=== PATIENT | female | born 1970 | race Caucasian/White ===

== ENCOUNTER 2016-05-12 12:54 | Emergency (ER) | payer OTHER ==
[2016-05-12 13:26] VITALS: BP 120/72
--- NOTE | 2016-05-12 14:19 | RAD ---
Indication: Fall, medial left ankle pain 3 views of the left ankle demonstrate soft tissue swelling. There is suggestion of a nondisplaced fracture distal fibula. This is best identified on the oblique mortise view. Ankle mortise is intact. IMPRESSION: Marked soft tissue swelling. Question of a nondisplaced fracture of the distal fibula.
--- NOTE | 2016-05-12 14:20 | RAD ---
Indication: Right hip pain posteriorly. 2 views of the right femur demonstrates no fracture. No other bone or joint abnormalities identified. IMPRESSION: No fracture of the right femur is noted.
--- NOTE | 2016-05-12 14:22 | RAD ---
Indication: Left foot pain after injury. 3 views of left foot demonstrates no definite fracture. No other bone or joint abnormality is identified. IMPRESSION: No fracture of the left foot is noted.
--- NOTE | 2016-05-12 14:49 | UC ---
Lower Extremity/Ankle HPI - HPI Summary HPI Summary: FALL YESTERDAY DOWN STEPS INVERTED LEFT ANKLE AND ALSO LANDED ON RIGHT HIP. ABLE TO BEAR WEIGHT, BUT LEFT ANKLE SWELLING AND PAIN CONTINUE. NO OTHER INJURIES NO HEAD OR NECK TRAUMA. - History of Current Complaint Chief Complaint: UCLowerExtremity Stated Complaint: LEFT ANKLE PAIN/INJURY Time Seen by Provider: 05/12/16 13:34 Hx Obtained From: Patient Hx Last Menstrual Period: 04/25/16 Onset/Duration: Sudden Onset, Lasting Hours, Still Present Severity Initially: Moderate Severity Currently: Moderate Aggravating Factor(s): Standing, Ambulation Alleviating Factor(s): Rest, Elevation, Ice Able to Bear Weight: Yes - Risk Factors Gout Risk Factors: Negative DVT Risk Factors: Negative Septic Arthritis Risk Factor: Negative - Allergies/Home Medications Allergies/Adverse Reactions: Allergies Allergy/AdvReac Type Severity Reaction Status Date / Time No Known Allergies Allergy Verified 05/12/16 13:26 Home Medications: Home Medications Warfarin TAB(*) [Coumadin TAB(*)] 5 mg PO SEE INSTRUCTIONS 05/12/16 [History Confirmed 05/12/16] PMH/Surg Hx/FS Hx/Imm Hx Previously Healthy: Yes Endocrine History Of: Reports: Diabetes, Dyslipidemia Denies: Thyroid Disease, Hyperthyroidism, Hypothyroidism Cardiovascular History Of: Reports: Cardiac Disorders - Mitral and Aortic valve replacement August 1994., Hypertension, Atrial Fibrillation - She had this in the past. Denies: Pacemaker/ICD, Myocardial Infarction, Congestive Heart Failure, Deep Vein Thrombosis, Bleeding Disorders Respiratory History Of: Denies: COPD, Asthma, Bronchitis, Pneumonia, Pulmonary Embolism GI/ History Of: Reports: Gastroesophageal Reflux Denies: Ulcer, Gastrointestinal Bleed, Gall Bladder Disease, Kidney Stones, Diverticulitis, Renal Disease, Urosepsis Neurological History Of: Denies: TIA, CVA, Dementia, Seizures, Migraine Psychological History Of: Reports: Anxiety, Depression Denies: Bipolar Disorder, Schizophrenia, Post Traumatic Stress Disorder Cancer History Of: Denies: Lung Cancer, Colorectal Cancer, Breast Cancer, Prostate Cancer, Cervical Cancer Other History Of: Anticoagulant Therapy Negative For: HIV, Hepatitis B, Hepatitis C - Surgical History Surgical History: Yes Surgery Procedure, Year, and Place: C -sections x2. Tubal surgery. mitral/ aortic valve replacements - Family History Known Family History: Positive: Cardiac Disease, Hypertension, Diabetes - Social History Occupation: Employed Full-time Lives: With Family Alcohol Use: None Substance Use Type: None Smoking Status (MU): Light Every Day Tobacco Smoker Type: Cigarettes Amount Used/How Often: 1/2 ppd - Immunization History Most Recent Influenza Vaccination: [id number] Review of Systems Constitutional: Negative Skin: Negative Eyes: Negative ENT: Negative Respiratory: Negative Cardiovascular: Negative Gastrointestinal: Negative Genitourinary: Negative Motor: Negative Neurovascular: Negative Musculoskeletal: Arthralgia, Myalgia Neurological: Negative Psychological: Negative All Other Systems Reviewed And Are Negative: Yes Physical Exam Triage Information Reviewed: Yes Appearance: Well-Appearing, No Pain Distress, Well-Nourished Vital Signs: Initial Vital Signs Temp 98.6 F 05/12/16 13:20 Pulse 79 05/12/16 13:20 Resp 16 05/12/16 13:20 BP 120/72 05/12/16 13:20 Pulse Ox 99 05/12/16 13:20 Vital Signs Reviewed: Yes Eye Exam: Normal ENT Exam: Normal ENT: Positive: Normal ENT inspection, Hearing grossly normal, TMs normal Dental Exam: Normal Neck exam: Normal Neck: Positive: Supple, Nontender, No Lymphadenopathy Respiratory Exam: Normal Respiratory: Positive: Chest non-tender, Lungs clear, Normal breath sounds, No respiratory distress, No accessory muscle use Cardiovascular Exam: Normal Cardiovascular: Positive: RRR, No Murmur, Pulses Normal Abdominal Exam: Normal Abdomen Description: Positive: Nontender Musculoskeletal: Positive: Strength Limited @ - LEFT ANKLELEFT ANKLE, ROM Limited @ - LEFT ANKLE, Edema @ - LEFT LATERAL ANKLE Neurological Exam: Normal Psychological Exam: Normal Skin Exam: Normal Lower Extremity Course/Dx - Differential Dx/Diagnosis Differential Diagnosis/HQI/PQRI: Fracture (Closed), Sprain, Strain Provider Diagnoses: POSSIBLE CLOSED LEFT DISTAL FIBULAR FRACTURE. LEFT ANKLE SPRAIN Discharge - Discharge Plan Condition: Stable Disposition: HOME Patient Education Materials: Ankle Fracture (ED), Ankle Sprain (ED) Referrals: Duglas Ovalle MD [Medical Doctor] - Willa Barnett MD [Primary Care Provider] - Jake Pena MD [Medical Doctor] -
== END 2016-05-12 14:48 | disposition home or self-care (01) ==
LOC: UCCORT 12:54
DX: S93.402A Sprain of unspecified ligament of left ankle, initial encounter (principal); W10.9XXA Fall (on) (from) unspecified stairs and steps, initial encounter; Y93.9 Activity, unspecified; Y92.9 Unspecified place or not applicable; Z95.2 Presence of prosthetic heart valve; Z79.01 Long term (current) use of anticoagulants; F17.210 Nicotine dependence, cigarettes, uncomplicated
CPT/HCPCS: 99212; G0463

== ENCOUNTER 2017-06-06 13:40 | Emergency (ER) | payer OTHER ==
[2017-06-06 14:05] VITALS: BP 125/70
--- NOTE | 2017-06-06 14:37 | UC ---
FLU HPI - HPI Summary HPI Summary: Patient complains of 2 days of body aches sore throat chills. Patient reports getting a flu vaccine this year. Patient has a primary care provider for elderly female patient also states she's had open heart surgery with 2 valve replacements. Patient denies chest pain or shortness of breath - History of Current Complaint Chief Complaint: UCRespiratory Stated Complaint: ACHY,FEVER,ST Time Seen by Provider: 06/06/17 14:11 Hx Obtained From: Patient Hx Last Menstrual Period: 05/17/17 ?: No Onset/Duration: Sudden Onset, Lasting Days - 2, Still Present Severity Currently: Moderate Severity Initially: Moderate Pain Intensity: 7 Pain Scale Used: 0-10 Numeric Associated Signs & Symptoms: Positive: Fever - subjective, Myalgia, Cough, Sore Throat, Nasal Congestion, Headache - Allergy/Home Medications Allergies/Adverse Reactions: Allergies Allergy/AdvReac Type Severity Reaction Status Date / Time No Known Allergies Allergy Verified 06/06/17 13:55 Home Medications: Home Medications Acetaminophen [Pain Relief] 1,500 mg PO PRN 06/06/17 [History] PMH/Surg Hx/FS Hx/Imm Hx Previously Healthy: No Endocrine History: Diabetes, Dyslipidemia Cardiovascular History: Hypertension, Other Other Cardiovascular History: valve replacements 2 GI/ History: Gastroesophageal Reflux Psychological History: Depression Other History Of: Anticoagulant Therapy Negative For: HIV, Hepatitis B, Hepatitis C - Surgical History Surgical History: Yes Surgery Procedure, Year, and Place: C -sections x2. Tubal surgery. mitral/ aortic valve replacements - Family History Known Family History: Positive: Cardiac Disease, Hypertension, Diabetes - Social History Occupation: Employed Full-time Lives: With Family Alcohol Use: None Substance Use Type: None Smoking Status (MU): Light Every Day Tobacco Smoker Type: Cigarettes Amount Used/How Often: 1/2 ppd Household Exposure Type: Cigarettes Cessation Counseling: Counseled 3+Min - 10 Min - Immunization History Most Recent Influenza Vaccination: [id number] Review of Systems Constitutional: Chills, Fatigue Skin: Negative Eyes: Negative ENT: Sore Throat, Nasal Discharge, Sinus Congestion Respiratory: Cough Cardiovascular: Negative Gastrointestinal: Negative Genitourinary: Negative Motor: Negative Neurovascular: Negative Musculoskeletal: Arthralgia, Myalgia Neurological: Negative Psychological: Negative Is Patient Immunocompromised?: No All Other Systems Reviewed And Are Negative: Yes Physical Exam Triage Information Reviewed: Yes Appearance: No Pain Distress, Ill-Appearing - mild, Obese Vital Signs: Initial Vital Signs Temp 98.1 F 06/06/17 13:58 Pulse 68 06/06/17 13:58 Resp 16 06/06/17 13:58 BP 125/70 06/06/17 13:58 Pulse Ox 96 06/06/17 13:58 Vital Signs Reviewed: Yes Eye Exam: Normal Eyes: Positive: Conjunctiva Clear ENT Exam: Normal ENT: Positive: Normal ENT inspection, Hearing grossly normal, Pharynx normal, TMs normal, Dental tenderness, Uvula midline. Negative: Nasal congestion, Tonsillar swelling, Trismus, Muffled voice, Hoarse voice, Sinus tenderness Dental Exam: Normal Neck exam: Normal Neck: Positive: Supple, Nontender, No Lymphadenopathy Respiratory Exam: Normal Respiratory: Positive: Chest non-tender, Lungs clear, Normal breath sounds, No respiratory distress, No accessory muscle use Cardiovascular Exam: Normal Cardiovascular: Positive: RRR, No Murmur, Pulses Normal, Brisk Capillary Refill Musculoskeletal Exam: Normal Musculoskeletal: Positive: Strength Intact, ROM Intact, No Edema Neurological Exam: Normal Neurological: Positive: Alert, Muscle Tone Normal Psychological Exam: Normal Skin Exam: Normal - . Diagnostics - Laboratory Diagnostic Studies Completed/Ordered: Rapid strep negative, influenza A and influenza B negative Flu Course/Dx - Course Course Of Treatment: Rest increase fluids Tylenol for discomfort follow with primary care doctor in 1-2 days return should symptoms worsen or fail to resolve - Differential Dx/Diagnosis Provider Diagnoses: Upper respiratory tract infection, viral illness Discharge - Sign-Out/Discharge Documenting (check all that apply): Discharge - Discharge Plan Condition: Stable Disposition: HOME Patient Education Materials: Upper Respiratory Infection (DC), Viral Syndrome ( ED) Referrals: Willa Barnett MD [Primary Care Provider] - 2 Days Additional Instructions: Rest increase fluids follow with primary care return as needed for worsening symptoms or failure of symptoms to resolve - Billing Disposition and Condition Condition: STABLE Disposition: HOME
== END 2017-06-06 15:03 | disposition home or self-care (01) ==
LOC: UCCORT 13:40
DX: J06.9 Acute upper respiratory infection, unspecified (principal); B34.9 Viral infection, unspecified; F17.210 Nicotine dependence, cigarettes, uncomplicated
CPT/HCPCS: 87502; 87651; 99211; G0463